=== PATIENT | female | born 1995 | race Caucasian/White ===

== ENCOUNTER 2017-04-27 01:27 | Emergency (ER) | payer OTHER, SELFPAY ==
[2017-04-27 01:34] VITALS: BP 136/89; PULSE 98; RESP 16; TEMP 36.8; O2SAT 98; BMI 34.3
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
[2017-04-27 02:04] LABS: Microscopic, Urine URINE MICROSCOPIC (MICROSCOPIC)
[2017-04-27 02:05] LABS: Appearance,Urine CLEAR (Clear); Bilirubin,Urine Negative (Negative); Blood, Urine 1+ (Negative); Color,Urine YELLOW (Yellow); Glucose,Urine (UA) Negative (Negative); Ketones,Urine Negative (Negative); Leukocyte Esterase,Urine 1+ (Negative); Nitrate,Urine Negative (Negative); Protein,Urine Negative (Negative); Specific Gravity, Urine 1.015 (1.005-1.030); Urobilinogen,Urine 0.2 EU/dl (0.2)
[2017-04-27 02:06] LABS: Urine Pregnancy, HCG Qual. Negative (Negative)
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
[2017-04-27 02:07] LABS: Basophils # 0.1 K/mm3 (0-0.2); Basophils % 0.5 % (0.1-2.0); Eosinophils # 0.1 K/mm3 (0.0-0.4); Eosinophils % 0.4 % (0.1-12.0); Hematocrit 38.8 % (37.0-47.0); Lymphocytes # 2.6 K/mm3 (0.7-4.5); Mean Corpuscular HGB Conc 33.4 g/dL (31.8-35.4); Mean Corpuscular Hemoglobin 27.4 pg (27.0-31.2); Mean Corpuscular Volume 82.3 fl (81-99); Monocytes # 0.6 K/mm3 (0.1-1.0); Monocytes % 3.9 % (1.7-9.3); Neutrophils # 10.6 K/mm3 (1.8-7.8); Neutrophils % 76.3 % (37.0-80.0); Platelet Count 261 K/mm3 (142-424); Red Blood Count 4.72 M/mm3 (4.20-5.40); Red Cell Distribution Width 12.2 % (11.5-17.5); White Blood Count 13.9 K/mm3 (4.5-13.0)
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
[2017-04-27 02:17] LABS: Alanine Aminotransferase 24 U/L (12-78); Albumin Level 3.4 gm/dL (3.4-5.0); Albumin/Globulin Ratio 0.9 (1.1-1.8); Alkaline Phosphatase 94 U/L (46-116); Anion Gap 2.5 mEq/L (5-15); Aspartate Amino Transferase 22 U/L (15-37); Bilirubin,Total 0.3 mg/dL (0.2-1.0); Blood Urea Nitrogen 7 mg/dL (7-18); Calcium 8.7 mg/dL (8.5-10.1); Carbon Dioxide 25 mmol/L (21.0-32.0); Chloride 103 mmol/L (98-107); Creatinine Clearance Estimated 167 mL/min (0-300); Creatinine,Serum 0.77 mg/dL (0.55-1.02); Estimated Glomerular Filt Rate 96 ml/min (>60); GFR (African American) 116 ML/MIN (>60); Globulin 3.6 gm/dl (1.3-3.2); Glucose 88 mg/dL (74-106); Potassium 3.5 mmoL/L (3.5-5.1); Sodium 127 mmol/L (136-145)
[2017-04-27 02:46] LABS: Amorphous Sediment,Urine Trace /lpf; Bacteria,Urine 2+ /lpf; Mucus,Urine 1+ /lpf
[2017-04-27 02:55] VITALS: BP 143/71; PULSE 88; RESP 16; O2SAT 100
== END 2017-04-27 04:04 | disposition home or self-care (01) ==
PROVIDERS: Emergency Provider Emergency Medicine; Family Provider Emergency Medicine
DX: S16.1XXA Strain of muscle, fascia and tendon at neck level, initial encounter (principal); S00.83XA Contusion of other part of head, initial encounter; V89.2XXA Person injured in unspecified motor-vehicle accident, traffic, initial encounter
CPT/HCPCS: 70450; 71010; 71045; 71046; 72125; 72170; 74177; 80053; 81001; 81025; 85025; 87086; 96372; 96374; 99284; Q9967

== ENCOUNTER → 2019-11-12 11:25 | Outpatient (CLI) | payer BC, SELFPAY ==
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
== END ==
PROVIDERS: PCP Emergency Medicine; Visit Provider Emergency Medicine
DX: M25.572 Pain in left ankle and joints of left foot (principal); M79.672 Pain in left foot
CPT/HCPCS: 73610; 73630

== ENCOUNTER 2019-11-15 15:14 | Emergency (ER) | payer BC, SELFPAY ==
[2019-11-15 15:32] LABS: Apearance,Urine Clear (Clear); Bilirubin,Urine Negative (Negative); Blood, Urine Negative (Negative); Color,Urine Yellow (Yellow); Glucose,Urine (UA) Negative (Negative); Ketones,Urine Negative (Negative); Protein,Urine Negative (Negative); Specific Gravity, Urine 1.005 (1.005-1.030); UTC Leukocyte Esterase,Urine Negative (Negative); UTC Nitrate,Urine Negative (Negative); Urobilinogen,Urine 0.2 EU/dl (0.2)
[2019-11-15 15:33] LABS: UTC Influenza A Antigen Negative (Negative); UTC Influenza B Antigen Negative (Negative)
[2019-11-15 15:40] LABS: UTC Pregnancy Test, Urine Negative (Negative)
[2019-11-15 15:46] VITALS: BP 121/81; PULSE 89; RESP 18; TEMP 37.6; O2SAT 99; BMI 43.7
--- NOTE | 2019-11-15 15:55 | HMH.EDUTC ---
[facility] [place] Impression: Nausea vomiting and diarrhea Disposition: Home, Self-Care Condition on Discharge: Good Instructions: Diarrhea, Nausea and Vomiting-Adult, Ondansetron Additional Instructions: ? Drink extra fluids with and between meals. If you have difficulty drinking, try very small amounts of water or suck on ice chips. ? Avoid fruit juices, as these do not replace minerals and can actually increase diarrhea. ? Children and adults can use sports drinks to replenish electrolytes. Younger children and infants should use products formulated for children, like oral rehydration solutions. ? Eat food in small amounts and let your stomach recover. ? Get lots of rest. You may feel tired or weak. ? No greasy or fried foods for the next 24-48 hours BRAT diet Bananas Rice Apples and Lerna ? Make sure to drink plenty of liquids ? Return if needed ? Straight to ER if any life threatening symptoms ? Zofran as prescribed ? Follow up with family doctor in the next 48-72 hours if no improvement or any worsening of symptoms Call back to the [facility] later this evening for results of your diarrhea panel Prescriptions: Ondansetron [Zofran 4mg ODT] 4 mg PO Q8HP PRN #20 tab.rapdis PRN Reason: Nausea Transmission Status: Pending to [facility] Dicyclomine HCl [Bentyl 10mg capsule] 10 mg PO TID PRN #15 cap PRN Reason: Cramping Transmission Status: Pending to [facility] Referrals: Jose Olson MD [Primary Care Provider] - As needed Forms: Work/School Release Time of Disposition: 17:32 Medical Decision Making - Narciso Inquiry Pt receiving controlled substance: No Narciso was queried for this patient: No Vital Signs: 11/15/19 15:46 Temperature 99.7 F H Temperature Source Oral Pulse Rate [Right Brachial] 89 Respiratory Rate 18 Blood Pressure [Right Arm] 121/81 Blood Pressure Mean [Right Arm] 94 Blood Pressure Source [Right Arm] Automatic Cuff Blood Pressure Position [Right Arm] Sitting 02 Sat by Pulse Oximetry 99 Oxygen Delivery Method Room Air - Lab Data Lab results reviewed: Yes: I reviewed the patient's lab results. Lab Results 11/15/19 15:31: Influenza Type A Ag Negative, Influenza Type B Ag Negative 11/15/19 15:31: Urine Color Yellow, Urine Appearance Clear, Urine pH 7.0, Ur Specific [place] 1.005, Urine Protein Negative, Urine Glucose (UA) Negative, Urine Ketones Negative, Urine Blood Negative, Urine Nitrate Negative, Urine Bilirubin Negative, Urine Urobilinogen 0.2, Ur Leukocyte Esterase Negative 11/15/19 15:34: [facility] Negative 11/15/19 16:37: WBC 7.9, RBC 4.57, Hgb 13.5, Hct 40.1, MCV 87.8, MCH 29.6, MCHC 33.7, RDW 12.8, Plt Count 254, MPV 7.5, Neut % (Auto) 60.0, Lymph % (Auto) 31.5, [place] % (Auto) 5.8, Eos % (Auto) 2.2, Baso % (Auto) 0.6, Neut # (Auto) 4.8, Lymph # (Auto) 2.5, [place] # (Auto) 0.5, Eos # (Auto) 0.2, Baso # (Auto) 0.1 Result diagrams: 11/15/19 16:37 Orders (Tests/Meds): ED MEDICATIONS Generic Name Dose Route Start Last Admin Trade Name Freq PRN Reason Stop Dose Admin Sodium Chloride 1,000 mls @ 999 mls/hr 11/15/19 16:00 11/15/19 16:19 Sod Chlor 0.9% 1000ml Bag IV 11/15/19 17:00 999 mls/hr .Q1H1M DESHAUN Administration Discontinued Medications Generic Name Dose Route Start Last Admin Trade Name Freq PRN Reason Stop Dose Admin Dicyclomine HCl 10 mg 11/15/19 16:08 11/15/19 16:20 Bentyl 10mg Capsule PO 11/15/19 16:09 10 mg ONCE ONE Administration Ondansetron HCl 4 mg 11/15/19 15:52 11/15/19 16:19 Zofran 4mg/2ml Vial IV 11/15/19 15:53 4 mg ONCE ONE Administration ORDERS Category Date Time Status Diarrhea 23 Panel, PCR Stat Lab 11/15/19 15:00 Received SARS-CoV-2, KELLE Stat Lab 11/15/19 16:11 Received - Reevaluation(s) Time: 16:49 Reevaluation #1: Patient states that she is feeling a little better after medication, no longer having N/v sitting up on exam table drinking water
[2019-11-15 16:26] LABS: Adenovirus F 40/41, stool Not Detected (NotDetected); Astrovirus Not Detected (NotDetected); Campylobacter Not Detected (NotDetected); Clostridium Difficile A/B, PCR Not Detected (NotDetected); Cryptosporidium Not Detected (NotDetected); Cyclospora Cayetanesis Not Detected (NotDetected); Entamoeba histolytica Not Detected (NotDetected); Enteroaggregative E coli Not Detected (NotDetected); Enteropathogenic E coli Not Detected (NotDetected); Enterotoxigenic E coli Not Detected (NotDetected); Giardia lamblia Not Detected (NotDetected); Norovirus Not Detected (NotDetected); Plesimonas Shigalloides, PCR Not Detected (NotDetected); Rotavirus A Not Detected (NotDetected); Salmonella, PCR Not Detected (NotDetected); Sapovirus Not Detected (NotDetected); Shiga-like toxin E coli Not Detected (NotDetected); Shigella Enterovasive E coli Not Detected (NotDetected); Vibrio Cholerae Not Detected (NotDetected); Vibrio, PCR Not Detected (NotDetected); Yersinia Entercolitica, PCR Not Detected (NotDetected)
[2019-11-15 16:54] LABS: Basophils # 0.1 K/mm3 (0-0.2); Basophils % 0.6 % (0.1-2.0); Eosinophils # 0.2 K/mm3 (0.0-0.4); Eosinophils % 2.2 % (0.1-12.0); Hematocrit 40.1 % (37.0-47.0); Hemoglobin 13.5 g/dL (12.2-16.2); Lymphocytes # 2.5 K/mm3 (0.7-4.5); Lymphocytes % 31.5 % (10-50); Mean Corpuscular HGB Conc 33.7 g/dL (31.8-35.4); Mean Corpuscular Hemoglobin 29.6 pg (27.0-31.2); Mean Corpuscular Volume 87.8 fl (81-99); Mean Platelet Volume 7.5 fl (7.4-10.4); Monocytes # 0.5 K/mm3 (0.1-1.0); Monocytes % 5.8 % (1.7-9.3); Neutrophils # 4.8 K/mm3 (1.8-7.8); Platelet Count 254 K/mm3 (142-424); Red Blood Count 4.57 M/mm3 (4.20-5.40); Red Cell Distribution Width 12.8 % (11.5-17.5); White Blood Count 7.9 K/mm3 (4.8-10.8)
[2019-11-15 17:47] VITALS: BP 121/81; PULSE 89; RESP 18; TEMP 37.6; O2SAT 99
[2019-11-17 14:14] LABS: Covid-19 Nasal PCR Sendout Lex Not Detected
== END 2019-11-15 17:50 | disposition home or self-care (01) ==
PROVIDERS: Emergency Provider Nurse Practitioner; PCP Emergency Medicine
DX: R11.2 Nausea with vomiting, unspecified (principal); R19.7 Diarrhea, unspecified; Z20.828 Contact with and (suspected) exposure to other viral communicable diseases; Z88.0 Allergy status to penicillin
CPT/HCPCS: 81003; 81025; 85025; 87507; 87804; 96365; 96375; 99203; J2405; U0004

== ENCOUNTER 2020-01-30 16:32 | Emergency (ER) | payer SELFPAY ==
[2020-01-30 16:58] VITALS: BP 157/90; PULSE 98; RESP 20; TEMP 38.3; O2SAT 100; BMI 41.5
--- NOTE | 2020-01-30 17:03 | HMH.EDUTC ---
[facility] [place] Clinical Impression: Viral upper respiratory illness, Encounter for laboratory testing for COVID-19 virus Disposition: Home, Self-Care Condition on Discharge: Good Instructions: DI for Viral Upper Respiratory Infection -- Adult, Preventing the Spread of Coronavirus Discharge Instructions Additional Instructions: *Monitor Temp, Over the counter Motrin or Tylenol as directed/as needed Tylenol every 4 hours and Motrin every 6 hours (as long as your family doctor has told you that you can take it) for fever or pain. and straight to ER if unable to lower temp less than 101.0 after medication given *Warm salt water gargles may help to soothe the throat *Throat Lozenges *Warm fluids like tea with honey may help to soothe the throat *Sleep elevated *Humidifier/Vaporizer *Flonase 2 sprays in each nostril daily but be aware that it may take 2-3 days before you notice improvement Follow up IMMEDIATELY for new or worsening symptoms or no Noticeable improvement over the next 48-72 hours. 911 for difficulty breathing or swallowing You was tested for today for COVID19 your test result should be back later this evening, you may call back later this evening to see if your test results are back and the result You was given a handout with instructions for Self Quarantine and Self isolation for while you wait on test results and what to do if they are positive Prescriptions: Fluticasone Propionate [Flonase 50mcg nasal spray 16gm] 1 spr NS DAILY #1 bottle Transmission Status: Received by [facility] Referrals: Jose Olson MD [Primary Care Provider] - As needed Forms: Work/School Release Medical Decision Making - Narciso Inquiry Pt receiving controlled substance: No Narciso was queried for this patient: No Vital Signs: 01/30/20 16:58 01/30/20 17:23 Temperature 100.9 F H 100.9 F H Temperature Source Oral Pulse Rate 98 H Pulse Rate [Right Brachial] 98 H Respiratory Rate 20 20 Blood Pressure 157/90 H Blood Pressure [Right Arm] 157/90 H Blood Pressure Mean [Right Arm] 112 Blood Pressure Source [Right Arm] Automatic Cuff Blood Pressure Position [Right Arm] Sitting 02 Sat by Pulse Oximetry 100 Oxygen Delivery Method Room Air Orders (Tests/Meds): ED MEDICATIONS Discontinued Medications Generic Name Dose Route Start Last Admin Trade Name Freq PRN Reason Stop Dose Admin Ketorolac Tromethamine 60 mg 01/30/20 16:58 01/30/20 17:07 Ketorolac 60mg/2ml Vial IM 01/30/20 16:59 60 mg ONCE ONE Administration ORDERS Category Date Time Status Covid-19 Nasal PCR ([facility] [place]) Routine Lab 01/30/20 16:40 Received Medical Decision Narrative: Discussed Torodol shot for headache and body aches along with fever and patient agreed denies chance of [facility] [place] - General Stated complaint: fevermSore throat,Cough,SOB,Weakness Time Seen by Provider: 01/30/20 17:03 Mode of Arrival: Ambulatory Source of Information: Patient Limitations: No Limitations Description of Symptoms (Recalled from Triage Doc. by RN): PATIENT C/O BODY ACHES, LOSS OF TASTE AND SMELL, AND COUGH. 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
[2020-01-30 17:23] VITALS: BP 157/90; PULSE 98; RESP 20; TEMP 38.3; O2SAT 100
== END 2020-01-30 17:30 | disposition home or self-care (01) ==
PROVIDERS: Emergency Provider Nurse Practitioner; PCP Emergency Medicine
DX: J06.9 Acute upper respiratory infection, unspecified (principal); Z20.828 Contact with and (suspected) exposure to other viral communicable diseases; Z88.0 Allergy status to penicillin
CPT/HCPCS: 96372; 99202; U0003

== ENCOUNTER 2020-03-19 09:11 | Emergency (ER) | payer BC, SELFPAY ==
[2020-03-19 09:15] VITALS: BP 111/61; PULSE 85; RESP 22; TEMP 36.6; O2SAT 97; BMI 42.9
--- NOTE | 2020-03-19 09:24 | XR_ITS ---
PROCEDURE: XR CHEST 2V CLINICAL HISTORY: shortness of breath COMPARISON: CR [id number] XR chest CHP 1V from 04/27/2017 FINDINGS: The cardiomediastinal silhouette and pulmonary vascularity are within normal limits. The lungs are clear without infiltrates, suspicious nodules, or pleural effusions. No acute bony abnormalities. IMPRESSION: No acute findings. Dictated by: Emiliano Domingo MD 03/19/2020 11:34 Emiliano Domingo MD in [place] 03/19/2020 11:34
--- NOTE | 2020-03-19 09:29 | HMH.EDUTC ---
[facility] Disposition Clinical Impression: Bronchitis Sinusitis Qualifiers: Sinusitis location: unspecified location Chronicity: unspecified Qualified Code(s): J32.9 - Chronic sinusitis, unspecified Disposition: Home, Self-Care Condition on Discharge: Good Instructions: Sinusitis, Sinus Headache, DI for Sinusitis, DI for Acute Bronchitis Additional Instructions: ? Start antibiotic today. Be sure to complete entire prescription even if feeling better ? Monitor temp. Tylenol every 4 hours as needed and / or ibuprofen every 6 hours as needed ( As long as your primary care physician has told you that it ok to take both. For fever/aches/pains ER if no less than 101 despite Tylenol or Motrin ? Humidifier/vaporizer or hot steamy shower ? Inhaler every 4-6 hours as needed like we discussed. If unsure how to use it, ask pharmacist to demonstrate how. Should help open airways and improve cough, wheezing, and shortness of breath ? Mucinex during the day for your cough and cough suppressant only at night. Be sure to drink lots of water. Insurance may not cover a prescriptions for mucinex. Might be cheaper to get 400mg tablets and take 2 tablet in the morning, mid-day and evening with lots of water. Start steroid tomorrow. Helps with inflammation therefore, cough and wheezing. Follow directions on the package. Reviewed side effects. Patient reports taking them before. Follow up IMMEDIATELY for new or worsening of symptoms OR no noticeable improvement over the next 48-72 hours. 911 immediately for any life threatening symptoms such as chest pain or difficulty breathing Prescriptions: Albuterol Sulfate [Proventil-HFA 90mcg/puff Inh] 1 - 2 puffs IH Q4HP PRN #1 inh PRN Reason: Shortness Of Breath Transmission Status: Received by [facility] methylPREDNISolone [Medrol 4mg tab] 4 mg PO DIRECTED #21 tab Transmission Status: Received by [facility] Azithromycin [Z-Jose M 250mg Tab] 250 mg PO DIRECTED #6 tab Transmission Status: Received by [facility] Referrals: Jose Olson MD [Primary Care Provider] - As needed Time of Disposition: 10:14 Medical Decision Making - Narciso Inquiry Pt receiving controlled substance: No Narciso was queried for this patient: No Vital Signs: 03/19/20 09:15 03/19/20 10:11 Temperature 97.9 F 97.9 F Temperature Source Oral Pulse Rate 85 Pulse Rate [Right Brachial] 85 Respiratory Rate 22 22 Blood Pressure 111/61 Blood Pressure [Right Arm] 111/61 Blood Pressure Mean [Right Arm] 77 Blood Pressure Source [Right Arm] Automatic Cuff Blood Pressure Position [Right Arm] Sitting 02 Sat by Pulse Oximetry 97 Oxygen Delivery Method Room Air Orders (Tests/Meds): ED MEDICATIONS Discontinued Medications Generic Name Dose Route Start Last Admin Trade Name Freq PRN Reason Stop Dose Admin Methylprednisolone Sodium Succinate 125 mg 03/19/20 09:51 03/19/20 09:58 Methylprednisolone Sod Succ 125mg Vial IM 03/19/20 09:52 125 mg ONCE ONE Administration - Radiology Data #1 Image(s): Chest Image Reviewed: Yes I have reviewed radiologist's interpretation Preliminary Findings: Normal/NAD [facility] HPI - General Stated complaint: poss bronchitis Time Seen by Provider: 03/19/20 09:29 Mode of Arrival: Ambulatory Source of Information: Patient Limitations: No Limitations Description of Symptoms (Recalled from Triage Doc. by RN): PATIENT C/O COUGH, CHEST TIGHTNESS, AND SOA SINCE LAST NIGHT HEENT Symptoms (Recalled from RN notes): No Resp Symptoms (Recalled from RN notes): Yes Skin Symptoms (Recalled from RN notes): No MS Symptoms (Recalled from RN notes): No Functional Status (Recalled from RN notes): WNL - History of Present Illness Provider Complaint: Patient states that she feels like she has bronchitis States that she has been having some sinus congestion and drianage in the back of her throat that has been causing her t
[2020-03-19 10:11] VITALS: BP 111/61; PULSE 85; RESP 22; TEMP 36.6; O2SAT 97
== END 2020-03-19 10:13 | disposition home or self-care (01) ==
PROVIDERS: Emergency Provider Nurse Practitioner; PCP Emergency Medicine
DX: J20.9 Acute bronchitis, unspecified (principal); J32.9 Chronic sinusitis, unspecified
CPT/HCPCS: 71046; 99201

== ENCOUNTER 2020-09-23 03:54 | Emergency (ER) | payer BC, SELFPAY ==
[2020-09-23 03:55] VITALS: BP 120/66; PULSE 85; RESP 16; TEMP 37.2; O2SAT 100; BMI 43.7
[2020-09-23 04:30] VITALS: BP 114/71; PULSE 71; RESP 14; O2SAT 100
[2020-09-23 05:00] VITALS: BP 121/81; PULSE 75; RESP 16; O2SAT 99
--- NOTE | 2020-09-23 05:11 | HMH.EDALLER ---
ED Disposition Clinical Impression: Allergic reaction Qualifiers: Encounter type: initial encounter Qualified Code(s): T78.40XA - Allergy, unspecified, initial encounter Bee sting Qualifiers: Encounter type: initial encounter Injury intent: accidental or unintentional Qualified Code(s): T63.441A - Toxic effect of venom of bees, accidental (unintentional), initial encounter Cellulitis Qualifiers: Site of cellulitis: other site Qualified Code(s): L03.818 - Cellulitis of other sites Disposition: Home, Self-Care Condition on Discharge: Good Instructions: DI for Insect Bites and Stings Additional Instructions: use meds and recheck if needed Prescriptions: cephALEXin [cephALEXin 500mg capsule*] 500 mg PO TID #30 cap Transmission Status: Pending to [facility] clindamycin HCL [Clindamycin HCl] 300 mg PO TID #21 cap Transmission Status: Pending to [facility] predniSONE [Prednisone 20mg Tab] 20 mg PO BID #10 tab Transmission Status: Pending to [facility] Referrals: Jose Olson MD [Primary Care Provider] - - Critical Care Critical Care Time: No Attestation: On 09/23/20, the high probability of a clinically significant, sudden or life threatening deterioration of the following system(s) required my full and direct attention, intervention and personal management. The time I documented below is in addition to time spent performing reported procedures but includes the following listed in this critical care notation. Medical Decision Making - Medical Records Medical records reviewed: Yes: I reviewed the patient's medical records. - Narciso Inquiry Pt receiving controlled substance: No Vital Signs: 09/23/20 03:55 09/23/20 04:30 09/23/20 05:00 Temperature 98.9 F Temperature Source Oral Pulse Rate 71 75 Pulse Rate [Right] 85 Respiratory Rate 16 14 16 Blood Pressure 114/71 121/81 Blood Pressure [Right Arm] 120/66 Blood Pressure Mean [Right Arm] 84 Blood Pressure Source [Right Arm] Automatic Cuff 02 Sat by Pulse Oximetry 100 100 99 Oxygen Delivery Method Room Air - Lab Data Lab results reviewed: Yes: I reviewed the patient's lab results. Orders (Tests/Meds): ED MEDICATIONS Discontinued Medications Generic Name Dose Route Start Last Admin Trade Name Freq PRN Reason Stop Dose Admin Methylprednisolone Sodium Succinate 125 mg 09/23/20 04:38 09/23/20 04:39 Methylprednisolone Sod Succ 125mg Vial IM 09/23/20 04:39 125 mg ONCE ONE Administration Allergic React/Insect Bite HPI - General Chief complaint: Allergic Reaction Stated complaint: bee sting on left breast at 1500 09/22/20 Time Seen by Provider: 09/23/20 04:35 Mode of Arrival - ED Triage: Family Vehicle Source of Information: Patient, Medical Record Limitations: No Limitations - History of Present Illness HPI narrative: bee sting lt breast about 12 hrs ago with reddness and tender lt breast - MD complaint: allergic reaction Onset (ago): hour(s) Symptoms: rash Treatment prior to arrival: benadryl Allergies/Adverse Reactions: Allergies Allergy/AdvReac Type Severity Reaction Status Date / Time Penicillins [PENICILLINS] Allergy Unknown Verified 12/01/19 08:53 Severity: moderate - Related Data Home Medications Medication Instructions Recorded Confirmed norgestimate-ethinyl estradioL 1 tab PO ONCE 04/20/18 12/01/19 [Sprintec 28 Day Tablet] Previous Rx's Medication Instructions Recorded Dicyclomine HCl [Bentyl 10mg 10 mg PO TID PRN #15 cap 11/15/19 capsule] clindamycin HCl 300 mg capsule 300 mg PO TID 14 Days #42 cap 11/28/19 Fluticasone Propionate [Flonase 1 spr NS DAILY #1 bottle 01/30/20 50mcg nasal spray 16gm] Azithromycin [Z-Jose M 250mg Tab*] 250 mg PO UD DOSE PK #6 tab 01/31/20 methylPREDNISolone [Medrol] 4 mg PO DIRECTED 6 Days #21 01/31/20 tab.ds.pk Albuterol Sulfate [Proventil-HFA 1 - 2 puffs IH Q4H
[2020-09-23 05:20] VITALS: BP 120/81; PULSE 72; RESP 16; TEMP 37.1; O2SAT 100
== END 2020-09-23 05:24 | disposition home or self-care (01) ==
PROVIDERS: Emergency Provider Emergency Medicine; PCP Emergency Medicine
DX: T63.441A Toxic effect of venom of bees, accidental (unintentional), initial encounter (principal); L03.818 Cellulitis of other sites; Z88.0 Allergy status to penicillin
CPT/HCPCS: 96372; 99282

== ENCOUNTER → 2021-03-24 18:05 | Outpatient (CLI) | payer BC, SELFPAY ==
--- NOTE | 2021-03-24 18:19 | XR_ITS ---
PROCEDURE: XR CHEST 2V CLINICAL HISTORY: Covid19 positive, shortness of breath COMPARISON: CR DAY1HPA XR chest CHP 1V from 04/27/2017 CR XR CHEST 2V from 03/19/2020 FINDINGS: The cardiomediastinal silhouette and pulmonary vascularity are within normal limits. The lungs are clear without infiltrates, suspicious nodules, or pleural effusions. No acute bony abnormalities. IMPRESSION: No acute findings. Dictated by: Emiliano Domingo MD 03/25/2021 08:13 mEiliano Domingo MD in [place] 03/25/2021 08:13
== END ==
PROVIDERS: PCP Emergency Medicine; Visit Provider Nurse Practitioner
DX: U07.1 COVID-19 (principal); R06.02 Shortness of breath
CPT/HCPCS: 71046

== ENCOUNTER → 2021-06-02 08:55 | Outpatient (CLI) | payer BC, SELFPAY ==
--- NOTE | 2021-06-02 09:01 | XR_ITS ---
FINAL REPORT CLINICAL HISTORY: LT ELBOW INJURY, FALL WHILE SKATING, ELBOW PAIN FINDINGS: LEFT ELBOW 3 views were obtained. There is no acute fracture or dislocation. There is no joint effusion. The joint spaces are intact. There is no soft tissue abnormality. IMPRESSION: No acute process. Reviewed, Interpreted and Dictated by Sanya Méndez III, MD Transcribed by Jeferson Sharma Authenticated by Sanya Méndez III, MD on 06/02/2021 11:07:58 AM [facility]
--- NOTE | 2021-06-02 09:01 | XR_ITS ---
FINAL REPORT CLINICAL HISTORY: LT ELBOW INJURY, FALL WHILE SKATING. LEFT ELBOW PAIN FINDINGS: 2 views of the left forearm were obtained. There is no acute fracture or dislocation. The joint spaces are intact. There is no soft tissue abnormality. IMPRESSION: No acute abnormality. Reviewed, Interpreted and Dictated by Sanya Méndez III, MD Transcribed by Jeferson Sharma Authenticated by Sanya Méndez III, MD on 06/02/2021 11:07:55 AM [facility]
== END ==
PROVIDERS: PCP Emergency Medicine; Visit Provider Emergency Medicine
DX: S59.902A Unspecified injury of left elbow, initial encounter (principal); M79.632 Pain in left forearm; W19.XXXA Unspecified fall, initial encounter
CPT/HCPCS: 73080; 73090

== ENCOUNTER 2021-07-29 16:05 | Emergency (ER) | payer BC, SELFPAY ==
[2021-07-29 16:30] VITALS: BP 120/81; PULSE 91; RESP 17; TEMP 37.1; O2SAT 99; BMI 36.3
[2021-07-29 17:09] VITALS: BP 120/81; PULSE 91; RESP 17; TEMP 37.1; O2SAT 99
--- NOTE | 2021-07-29 17:47 | HMH.EDUTC ---
[facility] [place] Disposition Clinical Impression: Gastroenteritis Disposition: Home, Self-Care Condition on Discharge: Good Instructions: Viral Gastroenteritis, DI for Viral Gastroenteritis -- Adult Additional Instructions: Drink plenty of fluids. Take tylenol or ibuprofen for pain or fever. Take the medications as directed. Follow up with your regular doctor. GO TO THE ER FOR ANY WORSENING SYMPTOMS Prescriptions: Ondansetron [Zofran 4mg ODT] 4 mg PO Q8HP PRN #20 tab PRN Reason: Nausea Transmission Status: Received by [facility]/pharmacy #[id number] Referrals: Jose Olson MD [Primary Care Provider] - Forms: Work/School Release Time of Disposition: 17:48 Medical Decision Making - Medical Records Medical records reviewed: No: I reviewed the patient's medical records. - Narciso Inquiry Pt receiving controlled substance: No Vital Signs: 07/29/21 16:30 07/29/21 17:09 Temperature 98.7 F 98.7 F Temperature Source Oral Pulse Rate 91 H Pulse Rate [Right Brachial] 91 H Respiratory Rate 17 17 Blood Pressure 120/81 Blood Pressure [Right Arm] 120/81 Blood Pressure Mean [Right Arm] 94 Blood Pressure Source [Right Arm] Automatic Cuff Blood Pressure Position [Right Arm] Sitting 02 Sat by Pulse Oximetry 99 Oxygen Delivery Method Room Air - Lab Data Lab results reviewed: Yes: I reviewed the patient's lab results. [facility] HPI - General Stated complaint: vomiting Time Seen by Provider: 07/29/21 17:47 Mode of Arrival: Ambulatory Source of Information: Patient Limitations: No Limitations Description of Symptoms (Recalled from Triage Doc. by RN): PATIENT C/O VOMITING, STOMACH CRAMPS AND DIARRHEA SINCE YESTERDAY HEENT Symptoms (Recalled from RN notes): No Resp Symptoms (Recalled from RN notes): No Skin Symptoms (Recalled from RN notes): No MS Symptoms (Recalled from RN notes): No Functional Status (Recalled from RN notes): WNL - History of Present Illness Provider Complaint: She c/o n/v/d and abdominal cramping since yesterday. She denies actual abdominal pain. - Related Data Previous Rx's Medication Instructions Recorded Ondansetron [Zofran 4mg ODT] 4 mg PO Q8HP PRN #20 tab 07/29/21 Allergies Allergy/AdvReac Type Severity Reaction Status Date / Time Penicillins [PENICILLINS] Allergy Unknown Verified 12/01/19 08:53 - Worker's Comp Is this a Worker's Comp case?: No [facility] History - Hepatitis A Screen Drug use history?: No High risk sexual behaviors?: No History of sexually transmitted infection?: No Currently employed?: No Childcare worker?: No Do you have indoor plumbing?: Yes Do you have electricity?: Yes Attestation statement:: This patient has been screened for Hepatitis A risk factors. I have reviewed the patient's past medical history: Yes Laterality Cases: Bilateral: Myringotomy (Ear Tubes), Tonsillectomy - Social History Smoking Status: Never smoker Alcohol Intake: never Alcohol Intake Frequency:: holidays/special occasions only Occupational Status: other ROS Obtained: Yes All systems reviewed & no additional complaints - Constitutional Constitutional: Reports as per HPI - Eyes Eyes: Denies eye discharge - ENT Ears, Nose, Mouth, and Throat: Reports as per HPI - Cardiovascular Cardiovascular: Denies chest pain - Respiratory Respiratory: Denies chest congestion, Denies cough - Gastrointestinal Gastrointestingal: Reports: as per HPI Physical Exam - General General appearance: alert, in no apparent distress - Head Head exam: atraumatic, normocephalic, normal inspection - Eye Eye exam: Present: normal appearance, PERRL, EOMI - ENT ENT exam: Present: normal exam, normal oropharynx, mucous membranes moist, TM's normal bilaterally, normal external ear exam - Neck Neck exam: Present: normal inspection, full ROM, trachea midline. Absent: meningismus, lymphadenopathy - Chest Chest inspection: Present: normal inspection, symmetric fabiana
== END 2021-07-29 17:50 | disposition home or self-care (01) ==
PROVIDERS: Emergency Provider Nurse Practitioner Family; PCP Emergency Medicine
DX: K52.9 Noninfective gastroenteritis and colitis, unspecified (principal); Z88.0 Allergy status to penicillin
CPT/HCPCS: 99212; G0463